=== PATIENT | female | born 1950 | race Caucasian/White ===

== ENCOUNTER 2020-01-16 08:00 | Outpatient (CLI) | payer OTHER ==
--- NOTE | 2020-01-16 18:00 | XRAY Report ---
PROCEDURE: Abdomen 3 View X-Ray and PA chest. INDICATIONS: ABDOMINAL PAIN, ACUTE TECHNIQUE: 2 views of the abdomen were acquired. PA chest. COMPARISON: None. FINDINGS: Surgical changes and devices: None. Lungs and pleura: No pleural effusions or pneumothorax. Lungs are clear. Mediastinum: Mediastinal contours appear normal. Heart size is normal. Bowel: No pneumoperitoneum. Scattered small bowel and colonic gas. No dilated loops of bowel seen. Soft tissues: No masses; visualized solid organ contours appear normal in size. No suspicious abdom inal calcifications. Bones: No suspicious bony abnormalities. IMPRESSION: No acute cardiopulmonary abnormality. Nonobstructive bowel gas pattern. If clinically indicated consider further evaluation with CT abdomen and pelvis with IV contrast. Reviewed by: Bravo Nuñez MD on 01/16/2020 5:58 PM PDT Approved by: Bravo Nuñez MD on 01/16/2020 5:58 PM PDT Station ID: [id number]
== END 2020-01-16 23:59 | disposition home or self-care (01) ==
LOC: DI.S 08:00
PROVIDERS: ATTEND Physician Assistant Medical
DX: R10.9 Unspecified abdominal pain (principal)
CPT/HCPCS: 74021